=== PATIENT | male | born 1995 | race Two or more races ===

== ENCOUNTER 2021-06-07 13:19 | Emergency (ER) | payer OTHER ==
[~2021-06-07] VITALS: Ht 177.8 cm; Wt 68.0 kg
[2021-06-07 13:28] VITALS: BP 126/75
[2021-06-07] MEDS ORDERED: CEPH500C2 PO (13:37)
[2021-06-07] MEDS ORDERED: SULF1TAB48 PO (13:37)
== END 2021-06-07 13:52 | disposition home or self-care (01) ==
LOC: ER 13:19
DX: L73.9 Follicular disorder, unspecified (principal); R59.0 Localized enlarged lymph nodes